=== PATIENT | male | born 1995 | race Caucasian/White ===

== ENCOUNTER 2017-07-31 09:38 | Emergency (ER) | payer OTHER ==
[~2017-07-31] VITALS: Ht 172.7 cm; Wt 107.0 kg
[2017-07-31 09:50] VITALS: Ht 172.7 cm; Wt 107.0 kg
[2017-07-31 11:08] VITALS: BP 124/69
== END 2017-07-31 11:30 | disposition home or self-care (01) ==
LOC: ED 09:38
DX: K62.5 Hemorrhage of anus and rectum (principal)